=== PATIENT | female | born 2000 | race Caucasian/White ===

== ENCOUNTER 2023-08-22 17:56 | Inpatient (IN) ==
[2023-08-22] MEDS ORDERED: Lidocaine 1% VIAL 10 MG/ML 30 ML VIAL INJ PRN (19:04)
[2023-08-22] MEDS ORDERED: Buffered Lidocaine 1% SYRIN 1 ml INTRADERM ONE (19:04)
[2023-08-22] MEDS ORDERED: Prochlorperazine 5 mg/ml 2 ml VIAL (10 mg) IV PRN (19:04)
[2023-08-22 20:10] LABS: ABS Eosinophils 0.1 10^3/uL (0.0-0.5); ABS Lymphocytes 2.7 10^3/uL (1.0-4.8); ABS Monocytes 0.7 10^3/uL (0.0-0.9); ABS Neutrophils 7.5 10^3/uL (1.5-7.6); Eosinophil % 0.7 %; Hematocrit 33.2 % (35-45); Lymphocyte % 24.2 %; Mean Corpuscular Hemoglobin 28.5 pg (27-33); Mean Corpuscular Hgb Conc 33.1 g/dL (31-36); Mean Platelet Volume 9.1 fL (7.5-11.2); Platelet Count 200 10^3/uL (150-450); Red Blood Count 3.86 10^6/uL (3.63-4.92); Red Cell Distribution Width 15.3 % (12-17)
[2023-08-22 20:11] LABS: Urine Appearance Clear; Urine Bilirubin Negative (Negative); Urine Blood Trace (Negative); Urine Color Light-Yellow; Urine Glucose Negative (Negative); Urine Ketones Negative (Negative); Urine Nitrite Negative (Negative); Urine Protein Trace (Negative); Urine Specific Gravity 1.027 (1.002-1.030); Urine Urobilinogen Negative (Negative); Urine pH 6.5 (5.0-8.0)
[2023-08-22 20:22] LABS: Urine Benzodiazepine Screen None Detected (None Detect); Urine Opiates Screen None Detected (None Detect)
[2023-08-22] MEDS: Lactated Ringers 1000 ml BAG 1,000 ML IV SCH (20:23)
[2023-08-22 20:28] LABS: ALT 11 U/L (7-52); Albumin 3.6 g/dL (3.2-5.2); Albumin/Globulin Ratio 1.2 (1-3); Alkaline Phosphatase 202 U/L (35-149); Anion Gap 9 mmol/L (2-16); Blood Urea Nitrogen 12 mg/dL (6-24); CO2 Carbon Dioxide 23 mmol/L (22-32); Calcium 9.1 mg/dL (8.6-10.3); Chloride 103 mmol/L (101-111); Creatinine, Serum 0.63 mg/dL (0.51-0.95); Globulin 3.1 g/dL (2-4); Glucose 82 mg/dL (70-100); Sodium 135 mmol/L (135-145); Total Bilirubin 0.3 mg/dL (0.2-1.0); Total Protein 6.7 g/dL (6.4-8.9); eGFR CKD-EPI 126.2 (>60)
[2023-08-22] MEDS: Oxytocin in LR 20,000 MILLI.UNIT/1,000 ML BAG IV SCH (20:35)
[2023-08-23] MEDS: Lactated Ringers 1000 ml BAG 1,000 ML IV ONE (00:19)
[2023-08-23] MEDS ORDERED: Lidocaine 1.5% EPI 1:200,000 30 ML SDV ONE (00:27)
[2023-08-23] MEDS: OBEPIDURAL (200 ML) 200 ML EPIDURAL ONE (00:56)
[2023-08-23] MEDS ORDERED: Lactated Ringers 1000 ml BAG 1,000 ML IV ONE (01:18)
[2023-08-23] MEDS ORDERED: Sodium Citrate/Citric Acid LIQ 15 ML UDC PO PRN (01:18)
[2023-08-23] MEDS ORDERED: Phenylephrine 40 mcg/mL 10mL (400mcg) SYRINGE IV PUSH PRN ×2 (01:18)
[2023-08-23] MEDS ORDERED: OBEPIDURAL (200 ML) 200 ML EPIDURAL SCH (02:00)
[2023-08-23] MEDS ORDERED: Lactated Ringers 1000 ml BAG 1,000 ML IV SCH ×2 (02:00→14:00)
[2023-08-23 07:55] LABS: Potassium Redraw 4.1 mmol/L (3.5-5.0)
[2023-08-23] MEDS ORDERED: Methylergonovine 0.2 mg AMPULE 1 ml AMP ONE (12:58)
[2023-08-23] MEDS: ceFAZolin 2 GM PREMIX 2 GM/50 ML BAG ONE (13:09)
[2023-08-23] MEDS: Methylergonovine 0.2 mg AMPULE 1 ml AMP IM ONE (13:14)
[2023-08-23] MEDS ORDERED: Glycerin ADULT 2.4 gm SUPP PR PRN (13:59)
[2023-08-23] MEDS: Dibucaine 1% OINT 28.35 GM TUBE PR PRN (15:10)
[2023-08-23] MEDS: Witch Hazel PAD JAR TOPICAL PRN (15:10)
[2023-08-23] MEDS: Oxytocin in LR 20,000 MILLI.UNIT/1,000 ML BAG IV SCH (15:12)
[2023-08-23 19:27] LABS: ABS Lymphocytes 1.8 10^3/uL (1.0-4.8); ABS Monocytes 1.5 10^3/uL (0.0-0.9); ABS Neutrophils 18.6 10^3/uL (1.5-7.6); ABS Nucleated RBC 0.01 10^3/ul; Hematocrit 23.2 % (35-45); Hemoglobin 7.8 g/dL (11.5-14.3); Lymphocyte % 8.1 %; Mean Corpuscular Hgb Conc 33.7 g/dL (31-36); Mean Corpuscular Volume 85.9 fL (80-97); Mean Platelet Volume 8.9 fL (7.5-11.2); Nucleated Red Blood Cells % 0.1 %/100WBC (0.0-0.8); Platelet Count 174 10^3/uL (150-450); Red Cell Distribution Width 15.4 % (12-17)
[2023-08-24 07:06] LABS: ABS Basophils 0.1 10^3/uL (0.0-0.1); ABS Eosinophils 0.1 10^3/uL (0.0-0.5); ABS Lymphocytes 2.9 10^3/uL (1.0-4.8); ABS Monocytes 1.3 10^3/uL (0.0-0.9); ABS Neutrophils 10.4 10^3/uL (1.5-7.6); Eosinophil % 0.6 %; Hematocrit 20.2 % (35-45); Hemoglobin 6.7 g/dL (11.5-14.3); Lymphocyte % 19.4 %; Mean Corpuscular Hemoglobin 28.8 pg (27-33); Mean Corpuscular Hgb Conc 33.2 g/dL (31-36); Mean Corpuscular Volume 86.8 fL (80-97); Mean Platelet Volume 8.5 fL (7.5-11.2); Platelet Count 138 10^3/uL (150-450); Red Blood Count 2.32 10^6/uL (3.63-4.92); Red Cell Distribution Width 15.7 % (12-17); White Blood Count 14.7 10^3/uL (3.8-11.8)
[2023-08-24] MEDS ORDERED: Iron Sucrose 200 MG in NS 0.9% 100 ml BAG 100 ML IVPB ONE (09:10)
[2023-08-25 09:32] LABS: Hematocrit 22.7 % (35-45); Hemoglobin 7.6 g/dL (11.5-14.3); Mean Corpuscular Hgb Conc 33.5 g/dL (31-36); Mean Corpuscular Volume 86.5 fL (80-97); Mean Platelet Volume 8.4 fL (7.5-11.2); Platelet Count 185 10^3/uL (150-450); Red Blood Count 2.62 10^6/uL (3.63-4.92); Red Cell Distribution Width 15.6 % (12-17); White Blood Count 14.9 10^3/uL (3.8-11.8)
[2023-08-25 11:46] VITALS: BP 141/69
== END 2023-08-25 13:25 | disposition home or self-care (01) | DRG 541 ==
LOC: MCHOBOUT 17:56 → MCHOB 18:56
PROVIDERS: ADMIT Registered Nurse; ATTEND Advanced Practice Midwife